=== PATIENT | male | born 1995 | race Hispanic/Latino ===

== ENCOUNTER 2022-12-08 08:29 | Emergency (ER) | payer OTHER ==
[~2022-12-08] VITALS: Ht 190.5 cm; Wt 122.7 kg
[2022-12-08] MEDS ORDERED: NS 1,000 ML IV ONE (11:20)
[2022-12-08] MEDS ORDERED: ACETAMINOPHEN 500 MG TAB PO ONE (12:15)
[2022-12-08 12:40] LABS: BASO % 0.2 % (0.0-1.0); EOS % 0.1 % (0.0-3.0); HEMATOCRIT 44.4 % (42.0-52.0); HEMOGLOBIN 15.2 g/dl (13.5-17.5); MEAN CORPUSCULAR HEMOGLOBIN 32.6 pg (27.0-33.0); MEAN CORPUSCULAR HGB CONC 34.2 g/dl (32.0-36.5); MEAN CORPUSCULAR VOLUME 95.3 fl (80.0-96.0); MONO # 0.8 10^3/uL (0.0-0.8); NEUTROPHILS # 13.6 10^3/uL (1.5-8.5); NEUTROPHILS % 82.3 % (36.0-66.0); PLATELET COUNT, AUTOMATED 192 10^3/uL (150-450); RED BLOOD COUNT 4.66 10^6/uL (4.30-6.10); WHITE BLOOD COUNT 16.5 10^3/uL (4.0-10.0)
[2022-12-08 13:13] LABS: ALBUMIN 4.3 G/DL (3.2-5.2); ALKALINE PHOSPHATASE 70 U/L (46-116); ALT/SGPT 58 U/L (7.0-40); AST/SGOT 23 U/L (<34); BILIRUBIN,TOTAL 0.9 MG/DL (0.3-1.2); BLOOD UREA NITROGEN 10 MG/DL (9-23); CARBON DIOXIDE LEVEL 26 MMOL/L (20-31); CHLORIDE LEVEL 103 MMOL/L (98-107); CREATININE FOR GFR 0.87 MG/DL (0.70-1.30); GLOMERULAR FILTRATION RATE > 60.0 (>60); GLUCOSE, FASTING 92 MG/DL (60-100); SODIUM LEVEL 139 MMOL/L (136-145); TOTAL PROTEIN 7.7 G/DL (5.7-8.2)
[2022-12-08] MEDS ORDERED: KETOROLAC 30 MG/ML 1ML VIAL IV ONE (13:15)
[2022-12-08] MEDS ORDERED: AMPICILLIN SOD/SULBACTAM SOD 3 GM in D5W MINI-BAG PLUS 100 ML IV ONE (13:15)
[2022-12-08] MEDS ORDERED: ISOVUE-370 76% 100ML VIAL As Ordered ONE (13:20)
[2022-12-08] MEDS ORDERED: CEFD300C41 PO (15:07)
[2022-12-08] MEDS ORDERED: IBUP80TA PO (15:07)
[2022-12-08] MEDS ORDERED: BENZ1LOZ9 PO (15:07)
[2022-12-08 17:31] VITALS: BP 160/90
== END 2022-12-08 16:48 | disposition home or self-care (01) ==
LOC: M ED 08:29
DX: J02.0 Streptococcal pharyngitis (principal); J03.90 Acute tonsillitis, unspecified; B34.8 Other viral infections of unspecified site; B34.1 Enterovirus infection, unspecified; F10.10 Alcohol abuse, uncomplicated; Z79.2 Long term (current) use of antibiotics; Z79.899 Other long term (current) drug therapy
CPT/HCPCS: 70491; 71046; 80053; 83605; 85025; 87040; 87428; 87486; 87581; 87633; 87798; 87880; 96361; 96374; 96375; 99284; J0295; J1100; J1885